=== PATIENT | female | born 1970 | race Asian ===

== ENCOUNTER 2017-09-25 10:34 | Emergency (ER) | payer SELFPAY ==
[~2017-09-25] VITALS: Ht 167.6 cm; Wt 61.2 kg
[2017-09-25 10:40] VITALS: BP 122/73; Ht 167.6 cm; Wt 61.2 kg
== END 2017-09-25 11:39 | disposition home or self-care (01) ==
LOC: ED 10:34
DX: N75.0 Cyst of Bartholin's gland (principal)
CPT/HCPCS: J2001; J3490